=== PATIENT | female | born 1970 | race Caucasian/White ===

== ENCOUNTER 2018-05-03 10:02 | Emergency (ER) | payer OTHER ==
[~2018-05-03] VITALS: Ht 177.8 cm; Wt 65.8 kg
[2018-05-03] MEDS ORDERED: PREDNISONE 20 M20 M1 PO (10:36)
[2018-05-03] MEDS ORDERED: ZYRTEC 10 MG TA10 MG PO (10:36)
[2018-05-03] MEDS ORDERED: PEPCID40 MG PO (10:36)
[2018-05-03 11:20] VITALS: BP 108/67
== END 2018-05-03 11:20 | disposition home or self-care (01) ==
LOC: M.ERS 10:02
DX: L50.9 Urticaria, unspecified (principal); G43.909 Migraine, unspecified, not intractable, without status migrainosus